=== PATIENT | female | born 1945 | race Two or more races ===

== ENCOUNTER 2017-03-19 23:47 | Emergency (ER) | payer SELFPAY ==
[~2017-03-19] VITALS: Ht 152.4 cm; Wt 89.0 kg
[2017-03-20] MEDS ORDERED: ALBUTEROL (0.083%) 2.5MG/3ML NEB HHN STA (00:59)
[2017-03-20 01:20] LABS: BASOPHILS % 0.4 % (0.0-2.0); EOSINOPHILS % 14.1 % (0.0-5.0); HEMATOCRIT. 42.1 % (36.0-48.0); HEMOGLOBIN. 14.6 g/dL (12.0-16.0); LYMPHOCYTES % 23.8 % (20.0-50.0); MEAN CORPUSCULAR HEMOGLOBIN 30.5 pg (28.0-32.0); MEAN CORPUSCULAR VOLUME 87.9 fL (81.0-99.0); MEAN PLATELET VOLUME 7.7 fl (7.4-10.4); MONOCYTES % 8.2 % (2.0-8.0); NEUTROPHILS % 53.5 % (40.0-76.0); PLATELET 251 x1000/uL (130-400); RED BLOOD CELL COUNT 4.79 mill/uL (4.2-5.4); RED CELL DISTRIBUTION WIDTH 11.9 % (11.6-14.6)
[2017-03-20 01:35] LABS: CARBON DIOXIDE 24 mEq/L (21-32); CHLORIDE 104 mEq/L (98-107); TROPONIN I < 0.02 ng/mL (0.00-0.04)
[2017-03-20 04:11] VITALS: BP 114/76
== END 2017-03-20 04:15 | disposition home or self-care (01) ==
LOC: ER 23:49
DX: J20.9 Acute bronchitis, unspecified (principal)
CPT/HCPCS: 36415; 71010; 80048; 83880; 84484; 85025; 85379; 94640; 99285; J7611; Z7610